=== PATIENT | male | born 1980 | race Caucasian/White ===

== ENCOUNTER → 2023-06-20 12:25 | Outpatient (CLI) | payer OTHER, SELFPAY ==
[2023-06-20 12:56] LABS: Semen Sperm Prescence Post-Vas Absent (ABSENT)
== END ==
LOC: LAB 12:27
PROVIDERS: Family Provider Family Medicine; PCP Student in an Organized Health Care Education/Training Program; Referring Provider Specialist; Visit Provider Specialist
DX: Z98.52 Vasectomy status (principal); N44.00 Torsion of testis, unspecified
CPT/HCPCS: 89321